=== PATIENT | female | born 1980 ===

== ENCOUNTER 2024-09-17 16:38 | Emergency (ER) | payer OTHER ==
[2024-09-17 16:43] VITALS: BP 146/85; PULSE 80; RESP 18; TEMP 98
--- NOTE | 2024-09-17 17:09 | ED ---
General Adult HPI - General Chief complaint: Abdominal Pain Stated complaint: Abd pain,eye issue Time Seen by Provider: 09/17/24 16:50 Source: patient, RN notes reviewed Mode of arrival: ambulatory Limitations: no limitations - History of Present Illness Initial comments: 43-year-old female presents emergency department with complaints of right upper quadrant abdominal pain in addition to yellowing of her eyes, itching of the skin, pale-colored stools. Patient states that she went to outside ER in June for right upper abdominal pain where she was informed that she has a duodenal mass. Patient had follow-up appointment with GI specialist and is scheduled for upper and lower scopes on the of this month. Over the past week and a half patient has been experiencing dark-colored urines and pale-colored stools where she had an outpatient ultrasound of her kidneys completed by her primary care provider that was unremarkable. Patient is presenting today for further evaluation of yellowing of her eyes and itching of her skin in addition to the associated symptoms stated above. She states that the pain fluctuates ranging from a 4 to a 8 out of 10 in pain. She denies associated fevers, chills, nausea, vomiting. - Related Data Allergies Allergy/AdvReac Type Severity Reaction Status Date / Time No Known Allergies Allergy Verified 09/17/24 16:43 Review of Systems ROS Statement: Those systems with pertinent positive or pertinent negative responses have been documented in the HPI. ROS Other: All systems not noted in ROS Statement are negative. Past Medical History Additional Past Medical History / Comment(s): abd mass 2024 History of Any Multi-Drug Resistant Organisms: None Reported Past Surgical History: Section, Cholecystectomy Past Psychological History: No Psychological Hx Reported Smoking Status: Never smoker Past Alcohol Use History: None Reported Past Drug Use History: None Reported General Exam - General Exam Comments Initial Comments: Visual Physical Exam Vital signs reviewed General: Well-appearing, nontoxic, no acute distress. Head: Normocephalic, atraumatic Eyes: PERRLA, EOMI ENT: Airway patent Chest: Nonlabored breathing Skin: No visual rash, normal skin tone Neuro: Alert and oriented 3 Musculoskeletal: No gross abnormalities Limitations: no limitations General appearance: alert, in no apparent distress Eye exam: Present: PERRL, EOMI, scleral icterus. Absent: normal appearance Neck exam: Present: normal inspection. Absent: tenderness, meningismus, lymphadenopathy Respiratory exam: Present: normal lung sounds bilaterally. Absent: respiratory distress, wheezes, rales, rhonchi, stridor Cardiovascular Exam: Present: regular rate, normal rhythm, normal heart sounds. Absent: systolic murmur, diastolic murmur, rubs, gallop, clicks GI/Abdominal exam: Present: soft, tenderness (RUQ and epigastric), normal bowel sounds. Absent: distended, guarding, rebound, rigid Extremities exam: Present: normal inspection, full ROM, normal capillary refill. Absent: tenderness, pedal edema, joint swelling, calf tenderness Back exam: Present: normal inspection. Absent: CVA tenderness (R), CVA tenderness (L) Course Vital Signs 09/17/24 16:40 Temperature 98 F Pulse Rate 80 Respiratory 18 Rate Blood Pressure 146/85 O2 Sat by Pulse 98 Oximetry Medical Decision Making - Medical Decision Making Was pt. sent in by a medical professional or institution (, PA, [facility], urgent care, hospital, or retirement...) When possible be specific @ -No Did you speak to anyone other than the patient for history (EMS, parent, family, police, friend...)? What history was obtained from this source @ -No Did you review nursing and triage notes (agree or disagree)? Why? @ -I reviewed and agree with nursing and triage notes Were old charts reviewed (outside hosp., previous admission, EMS record, old EKG, old radiological studies, urgent care reports/EKG's, retirement records)? Report findings @ -No old charts were reviewed Differential Diagnosis (chest pain, altered mental status, abdominal pain women, abdominal pain men, vaginal bleeding, weakness, fever, dyspnea, syncope, headache, dizziness, GI bleed, back pain, seizure, CVA, palpatations, mental health, musculoskeletal)? @ -Differential Abdominal Pain Women: Appendicitis, Cholecystitis, diverticulosis, ischemic bowel, pancreatitis, hepatitis, UTI, gastroenteritis, AAA, incarcerated hernia, bowel obstruction, c onstipation, inflammatory bowel, hepatitis, peptic ulcer disease, splenic infarction, perforated viscus, vulvitis, ovarian torsion, PID, kidney stone, placenta abruption, this is not meant to be an all-inclusive list EKG interpreted by me (3pts min.). @ -None X-rays interpreted by me (1pt min.). @ -None done CT interpreted by me (1pt min.). 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 Heterogeneous appearance of the cervix. Poorly postcholecystectomy changes with significant dilation of the common bile duct and intrahepatic biliary system, correlate for obstruction at the ampulla, pancreatic mass is not appearing to interfere with the common bile duct. U/S interpreted by me (1pt. min.). @ -None done What testing was considered but not performed or refused? (CT, X-rays, U/S, labs)? Why? @ -None What meds were considered but not given or refused? Why? @ -None Did you discuss the management of the patient with other professionals (professionals i.e. , PA, [facility], lab, RT, psych nurse, social work specialist, briquette operator, teacher, freedom of information officer, shoe caser)? Give summary @ -I spoke with emergency medicine physician, Dr. Gilberto Beckett, was agreed to accept the patient as a transfer for further evaluation of pancreatic mass and hyperbilirubinemia. Was smoking cessation discussed for >3mins.? @ -No Was critical care preformed (if so, how long)? @ -No Were there social determinants of health that impacted care today? How? (Ho melessness, low income, unemployed, alcoholism, drug addiction, transportation, low edu. Level, literacy, decrease access to med. care, alf, rehab)? @ -No Was there de-escalation of care discussed even if they declined (Discuss DNR or withdrawal of care, Hospice)? DNR status @ -No What co-morbidities impacted this encounter? (DM, HTN, Smoking, COPD, CAD, Cancer, CVA, ARF, Chemo, Hep., AIDS, mental health diagnosis, sleep apnea, morbid obesity)? @ -None Was patient admitted / discharged? Hospital course, mention meds given and route, prescriptions, significant lab abnormalities, going to OR and other pertinent info. @ - Transferred to [facility]. 43-year-old female presents emergency department with worsening right upper abdominal pain in addition to that she skin, yellowing of the eyes, pale stools. Patient's initial vitals are stable. On examination patient noted to have scleral icterus. Negative asterixis. She is provided with morphine for pain control and will undergo evaluation including laboratory testing, urinalysis, CT imaging abdomen pelvis. Patient is noted to have a transaminitis with a elevated AST of 74, ALT of 177, alkaline phosphatase of 154. Hyperbilirubinemia at 5.5. Patient's test is negative. Urinalysis no signs of infection. CBC is unremarkable. CT imaging of the abdomen pelvis is concerning for a pancreatic uncinate process mass in addition to dilation of the common bile duct and intrahepatic biliary system. As there is no GI coverage at our facility patient will be transferred to [facility] for further evaluation with likely ERCP and biopsy. Patient will be transferred to ER. Accepting transferring physician Dr. Gilberto Beckett. I discussed this case in detail with my attending, Dr. Tatum, who is also recommended transfer to facility with GI coverage for further evaluation of care. Patient will transport via private vehicle. Undiagnosed new problem with uncertain prognosis? @ -No Drug Therapy requiring intensive monitoring for toxicity (Heparin, Nitro, Insulin, Cardizem)? @ -No Were any procedures done? @ -No Diagnosis/symptom? @ -Hyperbilirubinemia, pancreatic mass, biliary ductal dilation Acute, or Chronic, or Acute on Chronic? @ -Acute Uncomplicated (without systemic symptoms) or Complicated (systemic symptoms)? @ -Complicated Side effects of treatment? @ -No Exacerbation, Progression, or Severe Exacerbation? @ -No Poses a threat to life or bodily function? How? (Chest pain, USA, SD, pneumonia, PE, COPD, DKA, ARF, appy, cholecystitis, CVA, Diverticulitis, Homicidal, Suicidal, threat to staff... and all critical care pts) @ -No - Lab Data Result diagrams: 09/17/24 18:14 09/17/24 18:14 Lab Results 09/17/24 09/17/24 09/17/24 Range/Units 18:14 18:14 18:14 WBC 7.95 (4.50-10.00) 10*3/uL RBC 4.30 (4.10-5.20) 10*6/uL Hgb 13.3 (12.0-15.0) g/dL Hct 39.0 (37.2-46.3) % MCV 90.7 (80.0-97.0) fL MCH 30.9 (27.0-32.0) pg MCHC 34.1 (32.0-37.0) g/dL Plt Count 349 (140-440) 10*3/uL MPV 10.0 (9.5-12.2) fL Immature Gran % (Auto) 0.3 % Neutrophils % 72.0 % Lymphocytes % 19.2 % Monocytes % 7.2 % Eosinophils % 0.8 % Basophils % 0.5 % Immature Gran # 0.02 (0.00-0.04) 10*3/uL Neutrophils # 5.73 (1.80-7.70) 10*3/uL Lymphocytes # 1.53 (0.90-5.00) 10*3/uL Monocytes # 0.57 (0.20-1.00) 10*3/uL Eosinophils # 0.06 (0.04-0.35) 10*3/uL Basophils # 0.04 (0.00-0.10) 10*3/uL PT 10.7 (10.0-12.5) sec INR 1.0 (<1.2) APTT 24.2 (22.0-30.0) sec Sodium 137 (137-145) mmol/L Potassium 4.1 (3.5-5.1) mmol/L Chloride 99 (98-107) mmol/L Carbon Dioxide 27 (22-30) mmol/L Anion Gap 11 mmol/L BUN 9 (7-17) mg/dL Creatinine 0.65 (0.52-1.04) mg/dL Est GFR (CKD-EPI)AfAm >90 (>60 ml/min/1.73 sqM) Est GFR (CKD-EPI)NonAf >90 (>60 ml/min/1.73 sqM) Glucose 107 H (74-99) mg/dL Plasma Lactic Acid Uriel (0.7-2.0) mmol/L Calcium 9.6 (8.4-10.2) mg/dL Total Bilirubin 5.5 H (0.2-1.3) mg/dL AST 74 H (14-36) U/L ALT 177 H (4-34) U/L Alkaline Phosphatase 154 H (38-126) U/L Total Protein 8.3 H (6.3-8.2) g/dL Albumin 4.5 (3.5-5.0) g/dL Amylase 57 (30-110) U/L Lipase 190 (23-300) U/L Urine Color Urine Appearance (Clear) Urine pH (5.0-8.0) Ur Specific [place] (1.001-1.035) Urine Protein (Negative) Urine Glucose (UA) (Negative) Urine Ketones (Negative) Urine Blood (Negative) Urine Nitrite (Negative) Urine Bilirubin (Negative) Urine Urobilinogen (<2.0) mg/dL Ur Leukocyte Esterase (Negative) Urine RBC (0-5) /hpf Urine WBC (0-5) /hpf Ur Squamous Epith Cells (0-4) /hpf Urine HCG, Qual (Not Detectd) 09/17/24 09/17/24 09/17/24 Range/Units 18:14 18:25 18:25 WBC (4.50-10.00) 10*3/uL RBC (4.10-5.20) 10*6/uL Hgb (12.0-15.0) g/dL Hct (37.2-46.3) % MCV (80.0-97.0) fL MCH (27.0-32.0) pg MCHC (32.0-37.0) g/dL Plt Count (140-440) 10*3/uL MPV (9.5-12.2) fL Immature Gran % (Auto) % Neutrophils % % Lymphocytes % % Monocytes % % Eosinophils % % Basophils % % Immature Gran # (0.00-0.04) 10*3/uL Neutrophils # (1.80-7.70) 10*3/uL Lymphocytes # (0.90-5.00) 10*3/uL Monocytes # (0.20-1.00) 10*3/uL Eosinophils # (0.04-0.35) 10*3/uL Basophils # (0.00-0.10) 10*3/uL PT (10.0-12.5) sec INR (<1.2) APTT (22.0-30.0) sec Sodium (137-145) mmol/L Potassium (3.5-5.1) mmol/L Chloride (98-107) mmol/L Carbon Dioxide (22-30) mmol/L Anion Gap mmol/L BUN (7-17) mg/dL Creatinine (0.52-1.04) mg/dL Est GFR (CKD-EPI)AfAm (>60 ml/min/1.73 sqM) Est GFR (CKD-EPI)NonAf (>60 ml/min/1.73 sqM) Glucose (74-99) mg/dL Plasma Lactic Acid Uriel 0.8 (0.7-2.0) mmol/L Calcium (8.4-10.2) mg/dL Total Bilirubin (0.2-1.3) mg/dL AST (14-36) U/L ALT (4-34) U/L Alkaline Phosphatase (38-126) U/L Total Protein (6.3-8.2) g/dL Albumin (3.5-5.0) g/dL Amylase (30-110) U/L Lipase (23-300) U/L Urine Color Yellow Urine Appearance Clear (Clear) Urine pH 6.0 (5.0-8.0) Ur Specific [place] 1.002 (1.001-1.035) Urine Protein Negative (Negative) Urine Glucose (UA) Negative (Negative) Urine Ketones Negative (Negative) Urine Blood Trace H (Negative) Urine Nitrite Negative (Negative) Urine Bilirubin Negative (Negative) Urine Urobilinogen <2.0 (<2.0) mg/dL Ur Leukocyte Esterase Negative (Negative) Urine RBC 1 (0-5) /hpf Urine WBC <1 (0-5) /hpf Ur Squamous Epith Cells <1 (0-4) /hpf Urine HCG, Qual Not Detected (Not Detectd) Disposition Clinical Impression: Hyperbilirubinemia, Pancreatic mass Disposition: OTHER INSTITUTION NOT DEFINED Condition: Stable Referrals: Fortino Mccullough MD [Primary Care Provider] - 1-2 days - Out of Hospital Transfer - Req. Specs Out of Hospital Transfer - Requested Specifics: Other Emergency Center ([facility]
[2024-09-17 18:25] LABS: Basophils # (A) 0.04 10*3/uL (0.00-0.10); Basophils % (A) 0.5 %; Eosinophils # (A) 0.06 10*3/uL (0.04-0.35); Eosinophils % (A) 0.8 %; HGB 13.3 g/dL (12.0-15.0); Lymphocytes # (A) 1.53 10*3/uL (0.90-5.00); Lymphocytes % (A) 19.2 %; MCH 30.9 pg (27.0-32.0); MCHC 34.1 g/dL (32.0-37.0); MCV 90.7 fL (80.0-97.0); Monocytes # (A) 0.57 10*3/uL (0.20-1.00); Monocytes % (A) 7.2 %; Neutrophils # (A) 5.73 10*3/uL (1.80-7.70); Platelet Count 349 10*3/uL (140-440); RDW 12.5 % (11.5-14.5); WBC 7.95 10*3/uL (4.50-10.00)
[2024-09-17 18:42] LABS: ALT 177 U/L (4-34); AST 74 U/L (14-36); African American GFR (CKD) >90 (>60 ml/min/1.73 sqM); Albumin 4.5 g/dL (3.5-5.0); Alkaline Phosphatase 154 U/L (38-126); Amylase 57 U/L (30-110); Anion Gap 11 mmol/L; Blood Urea Nitrogen 9 mg/dL (7-17); Calcium 9.6 mg/dL (8.4-10.2); Carbon Dioxide 27 mmol/L (22-30); Chloride 99 mmol/L (98-107); Glucose 107 mg/dL (74-99); Lipase 190 U/L (23-300); Non-African American GFR(CKD) >90 (>60 ml/min/1.73 sqM); Potassium 4.1 mmol/L (3.5-5.1); Sodium 137 mmol/L (137-145); Total Bilirubin 5.5 mg/dL (0.2-1.3); Total Protein 8.3 g/dL (6.3-8.2)
[2024-09-17 18:43] LABS: Appearance,Urine Clear (Clear); Bilirubin,Urine Negative (Negative); Blood,Urine Trace (Negative); Color,Urine Yellow; Glucose,Urine (UA) Negative (Negative); Ketones,Urine Negative (Negative); Leukocyte Esterase,Urine Negative (Negative); Nitrite,Urine Negative (Negative); Protein,Urine Negative (Negative); RBC,Urine 1 /hpf (0-5); Specific Gravity,Urine 1.002 (1.001-1.035); Squamous Epithelial Cell,Urine <1 /hpf (0-4); Urobilinogen,Urine <2.0 mg/dL (<2.0); WBC,Urine <1 /hpf (0-5)
[2024-09-17 18:45] LABS: Partial Thromboplastin Time 24.2 sec (22.0-30.0); Prothrombin Time 10.7 sec (10.0-12.5)
--- NOTE | 2024-09-17 19:27 | CT ---
EXAMINATION TYPE: CT abdomen pelvis w con DATE OF EXAM: 09/17/2024 7:11 PM COMPARISON: None CLINICAL INDICATION: Female, 43 years old with history of right ab pain, yellow of skin/eyes, duodenu m mass; Pt comes to with complaint of "dark urine, itchy skin, and sancho color stools" x1 week. TECHNIQUE: Axial CT abdomen pelvis w con;Sagittal and coronal reformats were created on a separate w orkstation. Contrast used:100 mL of Isovue 300 with IV Contrast, (none if empty) Oral contrast used: without Oral Contrast (none if empty) CT DLP: 798.9 mGycm, Automated exposure control for dose reduction was used. FINDINGS: LOWER CHEST: Unremarkable ABDOMEN LIVER: Unremarkable GALLBLADDER AND BILE DUCTS: Ductal dilation of the common bile duct and intrahepatic biliary system w ith common duct measuring up to 13 mm. PANCREAS: Ill-defined mass in the pancreatic uncinate process measuring 30 x 29 mm surrounding the po sterior aspect of the superior mesenteric artery. The main pancreatic duct is thought to be obstructe d series 201 image 23 as the duct extends into the mass. SPLEEN: Unremarkable. ADRENAL GLANDS: Unremarkable. KIDNEYS AND URETERS: No evidence of hydronephrosis or obstructing renal calculus. The ureters are unr emarkable. PELVIS BLADDER: No evidence for wall thickening or mass given limitations of exam. REPRODUCTIVE: Left ovarian cyst measuring up to 41 x 20 mm. Heterogenous appearance of the cervix ser ies 3 image 78 underlying mass not excluded ABDOMEN & PELVIS STOMACH AND BOWEL: No evidence of bowel obstruction. PERITONEUM/RETROPERITONEUM: No evidence of pneumoperitoneum or free fluid. VASCULATURE: No evidence of aortic aneurysm. MUSCULOSKELETAL: No acute osseous abnormalities LYMPH NODES: No gross evidence for lymphadenopathy. SOFT TISSUE/ABDOMINAL WALL: Unremarkable IMPRESSION: 1. Pancreatic uncinate process mass measuring 30 x 29 mm with infiltrative hazy margins around the v essels most pronounced around the superior mesenteric artery. 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 There is thought to be obstruction of the main pancreatic duct due to this mass. Oncology workup recommended. Correlate with serum markers. 2. Heterogenous appearance of the cervix. Direct visualization recommended to rule out underlying ce rvical malignancy. Consider dedicated pelvic ultrasound. 3. Left ovarian cyst measuring up to 4.0 cm. 4. Postcholecystectomy changes with significant dilation of the common bile duct and intrahepatic bi li system. Correlate for obstruction at the ampulla. The pancreatic mass is not appear to interfere w ith the common bile duct. [facility], , 09/17/2024 7:24 PM
[2024-09-17] MEDS: MORPHINE SULFATE 4 MG/ML SYRINGE IVP STA (20:14)
[2024-09-17 20:38] LABS: Bilirubin, Conjugated 2.2 mg/dL (0.0-0.3); Bilirubin,Unconjugated 1.2 mg/dL (0.0-1.1); Total Bilirubin 5.4 mg/dL (0.2-1.3)
== END 2024-09-17 20:22 | disposition other institution (70) ==
LOC: EC 16:38
DX: E80.6 Other disorders of bilirubin metabolism (principal); K86.9 Disease of pancreas, unspecified
CPT/HCPCS: 36415; 80053; 82150; 82248; 83605; 83690; 85025; 85610; 85730; 81001; 81025; 74177; 99285; 96374; J2270; Q9967